=== PATIENT | female | born 1990 | race Caucasian/White ===

== ENCOUNTER 2024-01-06 12:33 | Emergency (ER) | payer MEDICAID, OTHER ==
[~2024-01-06] VITALS: Ht 157.5 cm; Wt 72.6 kg
[~2024-01-06 12:33] MED LIST: CYCL10TA21 MT; IBUP-2029 MT
[2024-01-06 12:50] VITALS: O2SAT 98
[2024-01-06 13:10] LABS: BASOPHILS % 0.7 % (0.0-2.0); EOSINOPHILS % 1.1 % (0.0-5.0); HEMATOCRIT. 42.6 % (36.0-48.0); HEMOGLOBIN. 14.1 g/dL (12.0-16.0); LYMPHOCYTES % 13.1 % (20.0-50.0); MEAN CORPUSCULAR HGB CONC 33.2 g/dL (31.0-37.0); MEAN CORPUSCULAR VOLUME 96.3 fL (81.0-99.0); MEAN PLATELET VOLUME 7.9 fl (7.4-10.4); NEUTROPHILS % 74.1 % (40.0-76.0); PLATELET 306 x1000/uL (130-400); RED BLOOD CELL COUNT 4.42 mill/uL (4.2-5.4); RED CELL DISTRIBUTION WIDTH 14.6 % (11.6-14.6); WHITE BLOOD COUNT 10.4 x1000/uL (4.5-11.0)
[2024-01-06 13:16] LABS: CHLORIDE 103 mEq/L (98-107); POTASSIUM 3.6 mEq/L (3.5-5.1); SODIUM 136 mEq/L (136-145)
[2024-01-06 13:17] LABS: CARBON DIOXIDE 25 mEq/L (21-32)
[2024-01-06 13:18] LABS: CALCIUM 8.9 mg/dL (8.7-10.4)
[2024-01-06 13:22] LABS: GLUCOSE 109 mg/dL (70-105)
[2024-01-06 13:24] LABS: ALANINE AMINOTRANSFERASE 9 IU/L (10-49); ALBUMIN 4.7 g/dL (3.2-4.8); ASPARTATE AMINOTRANSFERASE 21 IU/L (<34); BILIRUBIN TOTAL 0.7 mg/dL (0.1-1.0)
[2024-01-06 13:25] LABS: HCG SCREEN NEGATIVE; PROTEIN TOTAL 7.4 g/dL (6.0-8.3)
[2024-01-06 13:36] LABS: UREA NITROGEN BLOOD < 5 mg/dL (9-23)
[2024-01-06] MEDS: DIPHENHYDRAMINE 25MG CAPSULE PO ONE (13:44)
[2024-01-06] MEDS: PREDNISONE 20MG TABLET PO ONE (13:45)
[2024-01-06] MEDS: FAMOTIDINE 20MG TABLET PO ONE (13:45)
[2024-01-06] MEDS: ONDANSETRON 4MG ODT PO ONE (13:45)
[2024-01-06 13:58] LABS: CLARITY URINE CLEAR (CLEAR); COLOR URINE YELLOW (YELLOW); GLUCOSE URINE NEGATIVE (NEGATIVE); KETONES URINE NEGATIVE (NEGATIVE); LEUKOCYTE ESTERASE URINE 1+ (NEGATIVE); NITRITE URINE NEGATIVE (NEGATIVE); OCCULT BLOOD URINE TRACE (NEGATIVE); PH URINE 6.5 (4.5-8.0); PROTEIN URINE TRACE (NEGATIVE); SPECIFIC GRAVITY URINE 1.005 (1.005-1.030)
[2024-01-06] MEDS: BACITRACIN ZINC OINT UDPKT TOP ONE (14:10)
[2024-01-06 14:26] LABS: BACTERIA URINE 1+; RBC URINE 0-2 /hpf (0-2)
[2024-01-06 14:28] LABS: SQUAMOUS EPITHELIAL CELL URINE FEW /lpf (RARE/1+); YEAST URINE NONE SEEN
[2024-01-06] MEDS ORDERED: IOHEXOL-300 100 ML BOTTLE ONE (15:00)
[2024-01-06] MEDS ORDERED: ONDA4TAB50 MT (16:35)
[2024-01-06] MEDS ORDERED: TOPUD MT (16:36)
[2024-01-06] MEDS ORDERED: NAPR-679 MT (16:36)
[2024-01-06] MEDS ORDERED: EPIN0.3P3 IM (16:41)
[2024-01-06] MEDS ORDERED: FAMO20TA8 MT (16:41)
[2024-01-06] MEDS ORDERED: DIPH25CA83 MT (16:41)
[2024-01-06] MEDS ORDERED: P20 MT (16:41)
[2024-01-06 16:51] VITALS: BP 130/76; PULSE 78; RESP 16; TEMP 98.3
[2024-01-06] MEDS ORDERED: SULF1TAB48 MT (16:59)
== END 2024-01-06 16:56 | disposition home or self-care (01) ==
LOC: ER 12:33
DX: T78.49XA Other allergy, initial encounter (principal); N83.202 Unspecified ovarian cyst, left side; N39.0 Urinary tract infection, site not specified; Z98.890 Other specified postprocedural states; Y92.89 Other specified places as the place of occurrence of the external cause
CPT/HCPCS: 99285; 74177; 76830; 76856; 80053; 81003; 81025; 84703; 83690; 85025; 36415; Q9967; Q0163; Q0162; J7512

== ENCOUNTER 2024-07-02 16:47 | Emergency (ER) | payer OTHER ==
[~2024-07-02] VITALS: Ht 154.9 cm; Wt 54.4 kg
[~2024-07-02 16:47] MED LIST changes: +DIPH25CA83 MT; +EPIN0.3P3 IM; +FAMO20TA8 MT; +NAPR-679 MT; +ONDA4TAB50 MT; +P20 MT; +SULF1TAB48 MT; +TOPUD MT
[2024-07-02 17:04] VITALS: BP 131/76; PULSE 104; RESP 16; TEMP 98.4; O2SAT 100
[2024-07-02] MEDS: CEFTRIAXONE SODIUM 1G VIAL IM ONE (22:00)
[2024-07-02] MEDS: BACITRACIN ZINC OINT UDPKT TOP ONE (22:00)
[2024-07-02] MEDS: FLUCONAZOLE 150MG TABLET PO ONE (22:00)
[2024-07-02] MEDS ORDERED: TETANUS, DIPHTHERIA, PERTUSSIS VAC/PF 0.5ML (>10YR OLD) IM ONE (22:00)
[2024-07-02] MEDS ORDERED: BO1 TP (22:50)
[2024-07-02] MEDS ORDERED: CEPH500C2 MT (22:50)
[2024-07-02] MEDS ORDERED: SULF1TAB48 MT (22:50)
[2024-07-02 22:56] LABS: CLARITY URINE TURBID (CLEAR); COLOR URINE DARK YELLOW (YELLOW); GLUCOSE URINE NEGATIVE (NEGATIVE); KETONES URINE 2+ (NEGATIVE); LEUKOCYTE ESTERASE URINE 2+ (NEGATIVE); NITRITE URINE POSITIVE (NEGATIVE); OCCULT BLOOD URINE 3+ (NEGATIVE); PROTEIN URINE 1+ (NEGATIVE); SPECIFIC GRAVITY URINE 1.027 (1.005-1.030)
[2024-07-03 00:08] LABS: CHLORIDE 101 mEq/L (98-107); SODIUM 139 mEq/L (136-145)
[2024-07-03 00:09] LABS: CALCIUM 9.1 mg/dL (8.7-10.4); CARBON DIOXIDE 27 mEq/L (21-32)
[2024-07-03 00:14] LABS: BASOPHILS % 0.5 % (0.0-2.0); CREATININE 0.8 mg/dL (0.6-1.0); EOSINOPHILS % 1.8 % (0.0-5.0); GLUCOSE 99 mg/dL (70-105); HEMATOCRIT. 37.7 % (36.0-48.0); HEMOGLOBIN. 12.6 g/dL (12.0-16.0); MEAN CORPUSCULAR HEMOGLOBIN 32.4 pg (28.0-32.0); MEAN CORPUSCULAR HGB CONC 33.3 g/dL (31.0-37.0); MEAN CORPUSCULAR VOLUME 97.3 fL (81.0-99.0); MEAN PLATELET VOLUME 8.1 fl (7.4-10.4); MONOCYTES % 8.2 % (2.0-8.0); NEUTROPHILS % 69.5 % (40.0-76.0); PLATELET 327 x1000/uL (130-400); RED BLOOD CELL COUNT 3.87 mill/uL (4.2-5.4); RED CELL DISTRIBUTION WIDTH 14.4 % (11.6-14.6); UREA NITROGEN BLOOD 8 mg/dL (9-23); WHITE BLOOD COUNT 7.6 x1000/uL (4.5-11.0)
[2024-07-03 00:42] LABS: POTASSIUM 2.8 mEq/L (3.5-5.1)
[2024-07-03] MEDS: POTASSIUM CHLORIDE 20MEQ TABLET SR PO ONE (00:45)
[2024-07-03 00:58] LABS: HCG SCREEN NEGATIVE
[2024-07-03] MEDS: POTASSIUM CHLORIDE 20MEQ TABLET SR PO NR (02:00)
[2024-07-03] MEDS: BACITRACIN ZINC OINT UDPKT TOP NR (02:00)
[2024-07-03] MEDS: CEFTRIAXONE SODIUM 1G VIAL IM NR (02:00)
[2024-07-03] MEDS: TETANUS, DIPHTHERIA, PERTUSSIS VAC/PF 0.5ML (>10YR OLD) IM ONE (02:15)
[2024-07-03 03:34] LABS: SQUAMOUS EPITHELIAL CELL URINE FEW /lpf (RARE/1+)
[2024-07-03 03:36] LABS: RBC URINE 50-100 /hpf (0-2)
[2024-07-03 03:37] LABS: BACTERIA URINE 2+
[2024-07-03 03:38] LABS: AMORPHOUS SEDIMENT URINE 1+ /lpf
[2024-07-07 04:07] LABS: CHLAMYDIA TRACHOMATIS NAA Negative (Negative); NEISSERIA GONORRHOEAE NAA Negative (Negative)
== END 2024-07-03 02:20 | disposition home or self-care (01) ==
LOC: ER 16:47
DX: T23.201A Burn of second degree of right hand, unspecified site, initial encounter (principal); N39.0 Urinary tract infection, site not specified; L03.113 Cellulitis of right upper limb; E87.6 Hypokalemia; Z79.1 Long term (current) use of non-steroidal anti-inflammatories (NSAID); Z79.899 Other long term (current) drug therapy; X08.8XXA Exposure to other specified smoke, fire and flames, initial encounter; Y93.89 Activity, other specified; Y92.89 Other specified places as the place of occurrence of the external cause; Y99.8 Other external cause status
CPT/HCPCS: 87491; 87591; 80048; 81003; 84703; 83605; 85025; 36415; 16020; 96372; 99284; 90715; 90471; J0696; Z7610